=== PATIENT | female | born 1955 | race Asian ===

== ENCOUNTER 2022-04-24 09:31 | Emergency (ER) | payer OTHER, SELFPAY ==
[2022-04-24 09:46] VITALS: BP 128/86; PULSE 96; RESP 18; TEMP 36.9; O2SAT 99
--- NOTE | 2022-04-24 09:49 | ED.URI ---
HPI - URI/Sore Throat General Chief Complaint: Upper Respiratory Infection Stated Complaint: Sinus,Ear Pain Time Seen by Provider: 04/24/22 09:50 Source: patient and RN notes reviewed Mode of arrival: ambulatory Limitations: no limitations History of Present Illness HPI Narrative: 67-year-old female presented for complaint of sinus pressure and congestion on the left side of her face, forehead, upper teeth and jaw for 1 week. She endorses sore throat and left ear pain. She has been taking Claritin for symptoms. She denies sick contacts. She has not been boosted for COVID or vaccinated for flu. She denies associated chest pain, shortness of breath, wheezing, nausea, vomiting, diarrhea, fevers or chills. MD elicited complaint: cough Related Data Allergies Allergy/AdvReac Type Severity Reaction Status Date / Time iodine Allergy Severe RASH Unverified 04/24/22 09:49 SHELL FISH Allergy Severe RASH Uncoded 04/24/22 09:49 Review of Systems Review of Systems: CONSTITUTIONAL: Denies malaise, chills, sweats, fever EYES: Denies visual changes, redness, or discharge ENT: Reports rhinorrhea, congestion, left sided sinus pain, otalgia, sore throat CARDIOVASCULAR: Denies chest pain RESPIRATORY: Denies dyspnea GASTROINTESTINAL: Denies abdominal pain, nausea, vomiting, diarrhea SKIN: Denies rash or itching MUSCULOSKELETAL: Denies myalgia NEUROLOGIC: Endorses headache Exam Narrative: GENERAL: Ill-appearing, nontoxic HEAD: Normocephalic EYES: conjunctivae clear ENT: Mucous membranes moist. TM pearly crawford with dull light reflex bilaterally; no tragal tenderness. Oropharynx erythematous without lesions or exudate, no drooling, no hoarseness, no trismus, uvula midline. No tripod positioning, muffled voice, soft palate or pharyngeal wall bulging NECK: Supple. No lymphadenopathy CHEST: Clear to auscultation, breath sounds equal. speaks in full sentences. HEART: Regular rate and rhythm. No murmur heard. SKIN: Warm, dry, no rash. NEURO: Alert and oriented x3. PSYCH: Normal mood and affect Course Course Emergency Course: Patient is aware of diagnosis, understands and agrees to treatment plan. Anticipatory guidance given. Patient agrees to follow-up as directed and is aware of reasons to seek care at the emergency department. Portions of this record may have been created with voice recognition software Level of Care: Express Care Visit Vital Signs Vital signs: Vital Signs Temperature 98.5 F 04/24/22 09:46 Pulse Rate 96 04/24/22 09:46 Respiratory Rate 18 04/24/22 09:46 Blood Pressure 128/86 04/24/22 09:46 Pulse Oximetry 99 04/24/22 09:46 Oxygen Delivery Room Air 04/24/22 09:46 Temperature 98.5 F 04/24/22 09:46 Pulse Rate 96 04/24/22 09:46 Respiratory Rate 18 04/24/22 09:46 Blood Pressure 128/86 04/24/22 09:46 Pulse Oximetry 99 04/24/22 09:46 Oxygen Delivery Room Air 04/24/22 09:46 reviewed MDM - URI/Sore Throat MDM Narrative Medical decision making narrative: Covid and strep negative. Advised supportive treatments and antibiotics as directed. She is in stable condition and appropriate for outpatient treatment and follow-up. Differential Diagnosis Differential diagnosis: Likely upper respiratory infection, sinusitis and viral infection Lab Data Labs: Strep Screen Presumptive Negative *(Reference Range: Negative)* Discharge Plan Discharge Clinical Impression: Upper respiratory infection Qualifiers: URI type: unspecified URI Qualified Code(s): J06.9 - Acute upper respiratory infection, unspecified Patient Disposition: Home, Self-Care Condition: Stable Instructions: Antibiotic Form Additional Instructions: Rapid strep swab was negative today You will be notified in a few days if the culture comes back positive for strep, and appropriate antibiotics will be called in at that time. if symptoms are due to
== END 2022-04-24 10:37 | disposition home or self-care (01) ==
PROVIDERS: Emergency Provider Nurse Practitioner Family
DX: J06.9 Acute upper respiratory infection, unspecified (principal); Z20.822 Contact with and (suspected) exposure to COVID-19
CPT/HCPCS: 87081; 87426; 87880; 99213; C9803; G0463

== ENCOUNTER → 2023-06-14 12:02 | Outpatient (CLI) | payer MEDICARE, SELFPAY ==
--- NOTE | ~2023-06-14 | DEXA_ITS ---
Bone Density Report Name: RIAZ ORNELAS Age: 68 Sex: Female Ethnicity: Date of : 1955 Indication: osteopenia; height loss; postmenopausal Referring Provider: ERIC VENTURA Study: Bone densitometry was performed. Exam Date: June 14, 2023 Accession number: [id number] Bone Density: Region BMD T-score Z-score Classification AP Spine (L1-L4) 0.859 -1.7 0.2 Osteopenia Femoral Neck (Left) 0.738 -1.0 0.6 Normal Total Hip (Left) 0.913 -0.2 1.1 Normal Femoral Neck (Right) 0.726 -1.1 0.5 Osteopenia Total Hip (Right) 0.920 -0.2 1.2 Normal Total Hip Mean 0.917 -0.2 1.2 Normal World Health Organization criteria for BMD impression classify patients as: Normal (T-score at or above -1.0), Osteopenia (T-score between -1.0 and -2.5), or Osteoporosis (T-score at or below -2.5). 10-year Fracture Risk(1): Major Osteoporotic Fracture 4.6% Hip Fracture 0.4% Reported Risk Factors: [place] (), Neck BMD=0.726, BMI=29.4 (1) FRAX(R) Version 3.08. Fracture probability calculated for an untreated patient. Fracture probability may be lower if the patient has received treatment. Previous Exams: Region Exam Age BMD T-score BMD Change BMD Change Date g/cm2 vs Baseline vs Previous AP Spine(L1-L4) 06/14/2023 68 0.859 -1.7 -0.123* -0.071* 05/14/2016 61 0.930 -1.1 -0.051* -0.014 11/11/2010 55 0.945 -0.9 -0.037* -0.037* 05/19/2007 52 0.982 -0.6 Total Hip(Left) 06/14/2023 68 0.913 -0.2 -0.031* -0.020 05/14/2016 61 0.933 -0.1 -0.011 -0.001 11/11/2010 55 0.934 -0.1 -0.010 -0.010 05/19/2007 52 0.944 0.0 Total Hip(Right) 06/14/2023 68 0.920 -0.2 -0.028* -0.053* 05/14/2016 61 0.973 0.3 0.025 0.019 11/11/2010 55 0.954 0.1 0.006 0.006 05/19/2007 52 0.948 0.1 *Denotes significance at 95% confidence level, LSC for AP Spine = 0.022 g/cm2, LSC for Total Hip = 0.027 g/cm2 Clinical Information Provided by Patient: Has used the following medications: Vitamin D, Calcium, MTV Patient maximum height was 62.0 Menopause Age: 50 No regular weight bearing exercise Does not regularly consume dairy products Drinks caffeinated beverages Onset of menses at age 13 Number of children 1 Impression: The patient has low bone mass, based on the Total Sp
--- NOTE | ~2023-06-14 | MM_ITS ---
EXAMINATION: MM screening ping BI w tianna HISTORY: Screening TECHNIQUE: Craniocaudal and mediolateral oblique 3-D tomosynthesis images were obtained and synthetic 2-D images were generated. CAD analysis was submitted and interpreted. COMPARISON: 05/14/2016 BREAST PARENCHYMAL COMPOSITION: There are scattered areas of fibroglandular density. FINDINGS: There is no evidence of suspicious mass, calcification, or architectural distortion to sugg est malignancy in either breast. There has been no suspicious interval change. IMPRESSION: 1. No mammographic evidence of malignancy. 2. Recommend routine screening mammography in one year. BI-RADS Category 1: Negative Reviewed, dictated and finalized at location A.
== END ==
DX: Z12.31 Encounter for screening mammogram for malignant neoplasm of breast (principal); Z91.89 Other specified personal risk factors, not elsewhere classified; Z78.0 Asymptomatic menopausal state; M85.88 Other specified disorders of bone density and structure, other site; M85.851 Other specified disorders of bone density and structure, right thigh
CPT/HCPCS: 77063; 77067; 77080